=== PATIENT | male | born 1960 | race Caucasian/White ===

== ENCOUNTER 2018-09-28 07:51 | Day surgery (SDC) | payer BC ==
[~2018-09-28 07:51] MED LIST: Lactated Ringers 1,000 ML IV SCH; Sodium Chloride 0.9% 10 ML Syringe FLUSH PRN
[2018-09-28] MEDS ORDERED: Propofol 200 MG/20 ML SDV ONE ×2 (10:26→11:11)
[2018-09-28] MEDS ORDERED: fentaNYL 100 MCG/2 ML SDV ONE (10:26)
--- NOTE | 2018-09-28 16:38 | OR ---
PREOPERATIVE DIAGNOSIS: Screening colonoscopy. POSTOPERATIVE DIAGNOSIS: Normal colonoscopic exam. PROCEDURE PROPOSED: Total flexible colonoscopy. PROCEDURE DONE: Total flexible colonoscopy. INDICATION: This is a 57-year-old gentleman who comes in for screening colonoscopy. His last examination was about 10 years ago. He denies any symptomatology. He has a negative family history for any colon cancer. TECHNIQUE: The patient was brought to the endoscopy suite, placed in left lateral decubitus position. He was sedated per [employer] with propofol. The flexible video colonoscope was then passed transanally and under visualization advanced to the cecum. Examination revealed a normal ascending, transverse, descending, sigmoid, and rectal colon. There was no evidence of any diverticulosis, polyps, colitis, or any other abnormalities, and the scope was then withdrawn. The patient tolerated procedure well. FINAL IMPRESSION: Essentially normal colonoscopic exam. PLAN: The patient was reassured and I felt he could wait 10 years before he needs a repeat colonoscopy. SCM: 09/28/2018 11:29:03 MODL: 09/28/2018 16:31:16 /[id number]
== END 2018-09-28 12:18 | disposition home or self-care (01) ==
LOC: VM.SDS 07:51
PROVIDERS: ATTEND Surgery
DX: Z12.11 Encounter for screening for malignant neoplasm of colon (principal); I25.10 Atherosclerotic heart disease of native coronary artery without angina pectoris; I10 Essential (primary) hypertension; J32.0 Chronic maxillary sinusitis; N52.9 Male erectile dysfunction, unspecified; E78.5 Hyperlipidemia, unspecified; I09.9 Rheumatic heart disease, unspecified; G47.33 Obstructive sleep apnea (adult) (pediatric); E78.00 Pure hypercholesterolemia, unspecified; R05 Cough; F17.220 Nicotine dependence, chewing tobacco, uncomplicated; E66.9 Obesity, unspecified; Z68.36 Body mass index [BMI] 36.0-36.9, adult; Z79.82 Long term (current) use of aspirin; Z79.899 Other long term (current) drug therapy
CPT/HCPCS: 45378; J2704; J3010; J7120

== ENCOUNTER 2019-04-11 11:02 | Emergency (ER) | payer BC ==
[2019-04-11] MEDS ORDERED: Sodium Chloride 0.9% 10 ML Syringe FLUSH PRN (11:26)
[2019-04-11] MEDS ORDERED: Morphine 4 MG/ML Syringe IVPUSH ONE (11:28)
[2019-04-11] MEDS ORDERED: Sodium Chloride 0.9% 1,000 ML IV ONE (11:28)
[2019-04-11] MEDS ORDERED: Ondansetron 4 MG/2 ML SDV IVPUSH ONE (11:28)
--- NOTE | 2019-04-11 12:13 | EDM.PDOC ---
ED HPI GENERAL MEDICAL PROBLEM - General Chief Complaint: Abdominal Pain Stated Complaint: ABDOMINAL PAIN Time Seen by Provider: 04/11/19 11:02 Source of Information: Reports: Patient History Limitations: Reports: No Limitations - History of Present Illness INITIAL COMMENTS - FREE TEXT/NARRATIVE: Pt. presents to ER with complaints of diffuse abdominal pain. Pt. states that the discomfort is worse in the RUQ. He has been afebrile. He complains of nausea. No vomiting. Denies any melena, hematochezia, or hematemesis. Denies any substernal chest pain. Pt. denies any chest pain or shortness of breath. Pt. denies any recent medication changes. Denies any lightheadedness. Pt. states that the pain has been present for a week. He states that the discomfort got worse on Friday after eating pizza. He has also noticed that his urine has been very dark for the past several days as well. Denies any dysuria, urgency, or frequency. He states that he has issues with starting and stopping his urine stream, but states that this is normal for him. Pt. states that he has not had a bowel movement for 2 days, but states that he has not been eating. Denies any diarrhea. He states that he has had issues with constipation in the past and has been taking miralax. Onset Date: 04/09/19 Location: Reports: Abdomen (localizes in RUQ). Denies: Chest Quality: Reports: Sharp. Denies: Ache Associated Symptoms: Reports: Nausea/Vomiting Upper Abdomen Pain Score (Numeric/FACES): 7 - Related Data Allergies Allergy/AdvReac Type Severity Reaction Status Date / Time No Known Allergies Allergy Verified 04/11/19 11:41 Home Meds: Home Meds Aspirin 1 tab PO DAILY 09/21/18 [History] Fluticasone Propionate [Flonase] 1 spray NASBOTH BID 09/21/18 [History] Metoprolol Succinate [Toprol XL] 1 tab PO DAILY 09/21/18 [History] Nitroglycerin 1 tab PO ASDIRECTED PRN 09/21/18 [History] atorvaSTATin Calcium [Lipitor] 1 tab PO DAILY 09/21/18 [History] hydroCHLOROthiazide [Hydrochlorothiazide] 1.5 tab PO DAILY 09/21/18 [History] Lisinopril [Zestril] 40 mg PO DAILY 04/11/19 [History] Sildenafil [Viagra] 50 mg PO BEDTIME PRN 04/11/19 [History] Past Medical History HEENT History: Reports: Impaired Vision Other HEENT History: glasses Cardiovascular History: Reports: CAD, High Cholesterol, Hypertension Respiratory History: Reports: Sleep Apnea Endocrine/Metabolic History: Reports: Obesity/BMI 30+ - Past Surgical History HEENT Surgical History: Reports: Tonsillectomy GI Surgical History: Reports: Colonoscopy Social & Family History - Caffeine Use Caffeine Use: Reports: Coffee ED ROS GENERAL - Review of Systems Review Of Systems: See Below Constitutional: Reports: No Symptoms HEENT: Reports: No Symptoms Respiratory: Reports: No Symptoms Cardiovascular: Reports: No Symptoms Endocrine: Reports: No Symptoms GI/Abdominal: Reports: Abdominal Pain, Constipation, Nausea. Denies: Anorexia, Black Stool, Bloody Stool, Diarrhea, Decreased Appetite, Hematemesis, Hematochezia, Melena, Mucous in Stool, Vomiting : Reports: Other (urine discoloration). Denies: Dysuria, Flank Pain, Frequency, Pain, Urgency Musculoskeletal: Reports: No Symptoms Skin: Reports: No Symptoms Neurological: Reports: No Symptoms Psychiatric: Reports: No Symptoms Hematologic/Lymphatic: Reports: No Symptoms Immunologic: Reports: No Symptoms ED EXAM, GENERAL - Physical Exam Exam: See Below Exam Limited By: No Limitations General Appearance: Alert, WD/WN, Moderate Distress Throat/Mouth: Normal Inspection, Normal Lips, Normal Teeth, Normal Gums, Normal Oropharynx, Normal Voice, No Airway Compromise Head: Atraumatic, Normocephalic Neck: Normal Inspection, Supple, Non-Tender, Full Range of Motion Respiratory/Chest: No Respiratory Distress, Lungs Clear, Normal Breath Sounds, No Accessory Muscle Use, Chest Non-Tender Cardiovascular: Normal Peripheral Pulses, Regular Rate, Rhythm, No Edema, No Gallop, No Murmur, No Rub Peripheral Pulses: 4+: Radial (L) GI/Abdominal: Soft, No Distention, Tender (RUQ abd. pain primarily, but has diffuse discomfort) (Male) Exam: Deferred Rectal (Males) Exam: Deferred Back Exam: Normal Inspection, Full Range of Motion Extremities: Normal Inspection, Normal Range of Motion, Non-Tender, No Pedal Edema, Normal Capillary Refill Neurological: Alert, Oriented, CN II-XII Intact, Normal Cognition, Normal Gait, Normal Reflexes, No Motor/Sensory Deficits Psychiatric: Normal Affect, Normal Mood Skin Exam: Warm, Dry, Intact, Normal Color, No Rash Lymphatic: No Adenopathy Course - Vital Signs Last Recorded V/S: Last Vital Signs Temp 37.0 C 04/11/19 11:02 Pulse 96 04/11/19 11:02 Resp 18 04/11/19 11:02 BP 144/89 H 04/11/19 11:02 Pulse Ox 92 L 04/11/19 11:02 - Orders/Labs/Meds Orders: Active Orders 24 hr Category Date Time Status Sodium Chloride 0.9% [Normal Saline] 1,000 ml Med 04/11/19 13:45 Active IV ASDIRECTED Sodium Chloride 0.9% [Saline Flush] Med 04/11/19 11:26 Active 10 ml FLUSH ASDIRECTED PRN Peripheral IV Insertion Adult [OM.PC] Routine Oth 04/11/19 11:27 Ordered Medication Orders Sodium Chloride (Normal Saline) 1,000 mls @ 250 mls/hr IV ASDIRECTED ARIN Last Admin: 04/11/19 13:40 Dose: 250 mls/hr Sodium Chloride (Saline Flush) 10 ml FLUSH ASDIRECTED PRN PRN Reason: Keep Vein Open Labs: Laboratory Tests 04/11/19 04/11/19 04/11/19 Range/Units 11:22 11:22 11:22 WBC 27.6 H* (4.0-10.0) x10^3/uL RBC 6.38 H (4.5-6.0) x10^6/uL Hgb 18.0 (14.0-18.0) g/dL Hct 49.3 (40.0-52.0) % MCV 77.3 L (78.0-93.0) fL MCH 28.2 (26.0-32.0) pg MCHC 36.5 H (32.0-36.0) g/dL RDW Coeff of Tamiko 14.9 (10.0-15.0) % Plt Count 206 (130-400) x10^3/uL Neut % (Auto) 89.9 H (50.0-80.0) % Lymph % (Auto) 3.7 L (25.0-50.0) % [place] % (Auto) 6.2 (2.0-11.0) % Eos % (Auto) 0.0 (0.0-4.0) % Baso % (Auto) 0.2 (0.2-1.2) % PT 13.1 H (10.0-12.8) SEC INR 1.2 L (2.0-3.5) Sodium 130 L (136-145) mmol/L Potassium 3.2 L (3.5-5.1) mmol/L Chloride 91 L (98-107) mmol/L Carbon Dioxide 26 (21-32) mmol/L Anion Gap 16.2 (10-20) mmol/L BUN 29 H (7-18) mg/dL Creatinine 1.3 (0.70-1.30) mg/dL Est Cr Clr Drug Dosing 70.26 mL/min Estimated GFR (MDRD) 56 Glucose 124 H (74-106) mg/dL Lactic Acid (0.4-2.0) mmol/L Calcium 8.6 (8.5-10.1) mg/dL Corrected Calcium 9.00 (8.5-10.1) mg/dL Phosphorus 1.9 L (2.6-4.7) mg/dL Magnesium 1.9 (1.8-2.4) mg/dL Total Bilirubin 9.8 H (0.2-1.0) mg/dL AST 269 H (15-37) U/L ALT 613 H (16-63) U/L Alkaline Phosphatase 265 H (46-116) U/L Creatine Kinase (39-308) U/L C-Reactive Protein 18.9 H (<=0.9) mg/dL Total Protein 7.4 (6.4-8.2) g/dL Albumin 3.5 (3.4-5.0) g/dL Globulin 3.9 Albumin/Globulin Ratio 0.90 Amylase 503 H (25-115) U/L Lipase 8855 H (73-393) U/L TSH, Ultra Sensitive 0.910 (0.358-3.74) uIU/mL Urine Color (YELLOW) Urine Appearance (CLEAR) Urine pH (5.0-8.0) Ur Specific [place] Urine Protein (NEGATIVE) mg/dL Urine Glucose (UA) (NEGATIVE) mg/dL Urine Ketones (NEGATIVE) mg/dL Urine Occult Blood (NEGATIVE) Urine Nitrite (NEGATIVE) Urine Bilirubin (NEGATIVE) Urine Urobilinogen (0.2) EU/dL Ur Leukocyte Esterase (NEGATIVE) Urine RBC (NOT SEEN) /HPF Urine WBC (NOT SEEN) /HPF Ur Squamous Epith Cells (NEGATIVE) /HPF Ur Transition Epith Cell (NEGATIVE) /HPF Amorphous Sediment Urine Bacteria (NEGATIVE) /HPF Hyaline Casts (NEGATIVE) /HPF WBC Casts (NEGATIVE) /HPF Urine Mucus (NEGATIVE) /LPF 04/11/19 04/11/19 04/11/19 Range/Units 11:22 11:22 11:59 WBC (4.0-10.0) x10^3/uL RBC (4.5-6.0) x10^6/uL Hgb (14.0-18.0) g/dL Hct (40.0-52.0) % MCV (78.0-93.0) fL MCH (26.0-32.0) pg MCHC (32.0-36.0) g/dL RDW Coeff of [place]iko (10.0-15.0) % Plt Count (130-400) x10^3/uL Neut % (Auto) (50.0-80.0) % Lymph % (Auto) (25.0-50.0) % [place] % (Auto) (2.0-11.0) % Eos % (Auto) (0.0-4.0) % Baso % (Auto) (0.2-1.2) % PT (10.0-12.8) SEC INR (2.0-3.5) Sodium (136-145) mmol/L Potassium (3.5-5.1) mmol/L Chloride (98-107) mmol/L Carbon Dioxide (21-32) mmol/L Anion Gap (10-20) mmol/L BUN (7-18) mg/dL Creatinine (0.70-1.30) mg/dL Est Cr Clr Drug Dosing mL/min Estimated GFR (MDRD) Glucose (74-106) mg/dL Lactic Acid 3.2 H* (0.4-2.0) mmol/L Calcium (8.5-10.1) mg/dL Corrected Calcium (8.5-10.1) mg/dL Phosphorus (2.6-4.7) mg/dL Magnesium (1.8-2.4) mg/dL Total Bilirubin (0.2-1.0) mg/dL AST (15-37) U/L ALT (16-63) U/L Alkaline Phosphatase (46-116) U/L Creatine Kinase 71 (39-308) U/L C-Reactive Protein (<=0.9) mg/dL Total Protein (6.4-8.2) g/dL Albumin (3.4-5.0) g/dL Globulin Albumin/Globulin Ratio Amylase (25-115) U/L Lipase (73-393) U/L TSH, Ultra Sensitive (0.358-3.74) uIU/mL Urine Color [place] H (YELLOW) Urine Appearance Cloudy H (CLEAR) Urine pH 6.0 (5.0-8.0) Ur Specific [place] >=1.030 Urine Protein 100 H (NEGATIVE) mg/dL Urine Glucose (UA) Negative (NEGATIVE) mg/dL Urine Ketones Negative (NEGATIVE) mg/dL Urine Occult Blood Trace-intact H (NEGATIVE) Urine Nitrite Negative (NEGATIVE) Urine Bilirubin Large H (NEGATIVE) Urine Urobilinogen 2.0 H (0.2) EU/dL Ur Leukocyte Esterase Negative (NEGATIVE) Urine RBC 0-5 (NOT SEEN) /HPF Urine WBC 5-10 H (NOT SEEN) /HPF Ur Squamous Epith Cells Occasional H (NEGATIVE) /HPF Ur Transition Epith Cell Occasional H (NEGATIVE) /HPF Amorphous Sediment Few Urine Bacteria Few H (NEGATIVE) /HPF Hyaline Casts Few H (NEGATIVE) /HPF WBC Casts Few H (NEGATIVE) /HPF Urine Mucus Many H (NEGATIVE) /LPF Meds: Medications Generic Name Dose Route Start Last Admin Trade Name Freq PRN Reason Stop Dose Admin Sodium Chloride 1,000 mls @ 250 mls/hr 04/11/19 13:45 04/11/19 13:40 Normal Saline IV 250 mls/hr ASDIRECTED ARIN Administration Sodium Chloride 10 ml 04/11/19 11:26 Saline Flush FLUSH ASDIRECTED PRN Keep Vein Open Discontinued Medications Generic Name Dose Route Start Last Admin Trade Name Freq PRN Reason Stop Dose Admin Sodium Chloride 1,000 mls @ 1,000 mls/hr 04/11/19 11:28 04/11/19 11:25 Normal Saline IV 04/11/19 12:27 1,000 mls/hr .BOLUS ONE Administration Piperacillin Sod/Tazobactam 100 mls @ 200 mls/hr 04/11/19 12:52 04/11/19 13: 01 Sod 3.375 gm/ Sodium Chloride IV 04/11/19 13:21 200 mls/hr STAT ONE Administration Iopamidol 100 ml 04/11/19 12:25 04/11/19 12:26 Isovue-300 (61%) IVPUSH 04/11/19 12:26 100 ml ONETIME ONE Administration Morphine Sulfate 4 mg 04/11/19 11:28 04/11/19 11:47 Morphine IVPUSH 04/11/19 11:29 4 mg ONETIME ONE Administration Ondansetron HCl 4 mg 04/11/19 11:28 04/11/19 11:45 Zofran IVPUSH 04/11/19 11:29 4 mg ONETIME ONE Administration - Radiology Interpretation Free Text/Narrative:: Acute pancreatitis with dilation of the common bile duct suspicious for choledocholithiasis or other obstructing process. Possible 2x5 mm stone in R distal ureter without hydronephrosis. - Re-Assessments/Exams Free Text/Narrative Re-Assessment/Exam: 04/11/19 14:11 Pt. was given a liter of NS on arrival. Pain and nausea were treated with IV morphine and zofran. Pt. was started on Zosyn 3.375gm IV. After his first liter of NS, he was started on a second liter at 250ml/hr. He remained hemodynamically stable during his stay in ER. Departure - Departure Time of Disposition: 14:19 Disposition: DC/Tfer to Acute Hospital 02 Clinical Impression: Pancreatitis, Choledocholithiasis with acute cholecystitis, Nephrolithiasis - Discharge Information Referrals: Brie Junior DO [Primary Care Provider] - Forms: ED Department Discharge Sepsis Event Note - Evaluation Sepsis Screening Result: No Definite Risk - Focused Exam Vital Signs: Vital Signs Temp Pulse Resp BP Pulse Ox 04/11/19 11:02 37.0 C 96 18 144/89 H 92 L Date Exam was Performed: 04/11/19 Time Exam was Performed: 14:18 - My Orders Last 24 Hours: My Active Orders 04/11/19 11:26 Sodium Chloride 0.9% [Saline Flush] 10 ml FLUSH ASDIRECTED PRN 04/11/19 11:27 Peripheral IV Insertion Adult [OM.PC] Routine 04/11/19 13:45 Sodium Chloride 0.9% [Normal Saline] 1,000 ml IV ASDIRECTED - Assessment/Plan Last 24 Hours: My Active Orders 04/11/19 11:26 Sodium Chloride 0.9% [Saline Flush] 10 ml FLUSH ASDIRECTED PRN 04/11/19 11:27 Peripheral IV Insertion Adult [OM.PC] Routine 04/11/19 13:45 Sodium Chloride 0.9% [Normal Saline] 1,000 ml IV ASDIRECTED Plan: Pt. will be transferred to [facility]. Pt. accepted by Dr. Medina. He will be transported via [facility] ground ambulance. Continue IV NS at 250ml/hr. All questions were answered.
[2019-04-11 12:14] LABS: ANION GAP 16.2 mmol/L (10-20)
[2019-04-11] MEDS ORDERED: Iopamidol 612 MG/ML 100 ML Bottle IVPUSH ONE (12:25)
[2019-04-11] MEDS ORDERED: Piperacillin/Tazobactam 3.375 GM in Sodium Chloride 0.9% 100 ML IV ONE (12:52)
--- NOTE | 2019-04-11 13:22 | CT ---
[id number] CT/CT Abdomen Pelvis W IV EXAM: ABDOMEN AND PELVIS CT WITH CONTRAST INDICATION: ABDOMINAL PAIN, ELEVATED WBCs. COMPARISON: None. DISCUSSION: Infiltrating edema in the pancreas and surrounding soft tissues with a small amount of fluid and inflammatory changes extending into the left paracolic gutter and retroperitoneum around the duodenum compatible with acute interstitial pancreatitis. There is mild dilation of the common duct to about 8 mm suspicious for choledocholithiasis or other obstructing process at the ampulla. A stone is not definitely seen at the site of transition. Mild distention or wall thickening of the gallbladder is likely secondary, but early cholecystitis cannot be excluded. There is mild fatty infiltration of the liver. There are couple of subcentimeter hypodensities in the liver that are too small to further characterize. Tiny nonobstructing calculus lower pole right kidney. There appears to be a 5 x 2.5 mm calculus in the distal right ureter without associated hydronephrosis. Partial atelectasis of both lower lobes. Small fat-containing left inguinal hernia. Scattered colonic diverticula without evidence of diverticulitis. IMPRESSION: 1. Acute pancreatitis without CT evident complication. 2. Mild dilation of the common duct is suspicious for choledocholithiasis or other obstructing process. 3. Right nephrolithiasis and probable nonobstructing distal right ureteral calculus. Moises Vásquez MD 04/11/19 0226 Thank you for allowing us to participate in the care of your patient.
[2019-04-11] MEDS ORDERED: Sodium Chloride 0.9% 1,000 ML IV SCH (13:45)
[2019-04-11] MEDS ORDERED: HYDROmorphone 1 MG/ML Syringe IVPUSH ONE (14:29)
== END 2019-04-11 15:00 | disposition short-term general hospital (02) ==
LOC: VM.ED 11:02
DX: K85.90 Acute pancreatitis without necrosis or infection, unspecified (principal); K80.40 Calculus of bile duct with cholecystitis, unspecified, without obstruction; N20.2 Calculus of kidney with calculus of ureter; I25.10 Atherosclerotic heart disease of native coronary artery without angina pectoris; I11.0 Hypertensive heart disease with heart failure; I50.9 Heart failure, unspecified; Z79.82 Long term (current) use of aspirin; Z79.899 Other long term (current) drug therapy
CPT/HCPCS: 36415; 74177; 80053; 81001; 82150; 82550; 83605; 83690; 83735; 84100; 84443; 85025; 85610; 86140; 96361; 96365; 96375; 99285-25; J1170; J2270; J2405; J2543; J7030; J7050; Q9967

== ENCOUNTER 2022-12-26 06:54 | Inpatient (IN) | payer BC ==
[2022-12-26] MEDS ORDERED: Diltiazem 50 MG/10 ML SDV IVPUSH ONE (07:06)
[2022-12-26 07:15] LABS: BASOPHILS PERCENT AUTO 0.3 % (0.2-1.2); EOSINOPHILS ABSOLUTE AUTO 0.2 x10^3/uL (0.0-0.5); EOSINOPHILS PERCENT AUTO 2.3 % (0.0-4.0); HEMOGLOBIN 16.7 g/dL (14.0-18.0); IMMATURE GRAN ABSOLUTE AUTO 0.01 x10^3/uL (0.00-0.07); LYMPHOCYTES ABSOLUTE AUTO 1.9 x10^3/uL (1.0-4.8); LYMPHOCYTES PERCENT AUTO 27.4 % (25.0-50.0); MEAN CORPUSCULAR HEMOGLOBIN 28.4 pg (26.0-32.0); MEAN CORPUSCULAR HGB CONC 34.8 g/dL (32.0-36.0); MEAN CORPUSCULAR VOLUME 81.6 fL (78.0-93.0); MONOCYTES ABSOLUTE AUTO 0.5 x10^3/uL (0.0-0.8); MONOCYTES PERCENT AUTO 6.6 % (2.0-11.0); NEUTROPHILS ABSOLUTE AUTO 4.4 x10^3/uL (1.8-7.7); NEUTROPHILS PERCENT AUTO 63.3 % (50.0-80.0); PLATELET COUNT,PLT 195 x10^3/uL (130-400); RED BLOOD CELL COUNT 5.88 x10^6/uL (4.5-6.0)
[2022-12-26 07:35] LABS: PROTHROMBIN TIME 10.4 SEC (9.5-12.2); PTT,PARTIAL THROMBOPLSTIN TIME 26.5 SEC (23.6-33.6)
[2022-12-26 07:37] LABS: A/G RATIO 1.11; ALBUMIN 3.9 g/dL (3.4-5.0); ANION GAP 13.7 mmol/L (5-15); BILIRUBIN TOTAL 0.5 mg/dL (0.2-1.0); C-REACTIVE PROTEIN 0.25 mg/dL (<=0.30); CALCIUM 9.1 mg/dL (8.5-10.1); CREATININE 0.9 mg/dL (0.70-1.30); EST CRCL DRUG DOSING (CG) 96.41 mL/min; POTASSIUM,K 3.7 mmol/L (3.5-5.1); PROTEIN TOTAL,TP 7.4 g/dL (6.4-8.2)
[2022-12-26] MEDS ORDERED: Diltiazem 125 MG in Sodium Chloride 0.9% 100 ML IV SCH (08:00)
[2022-12-26] MEDS ORDERED: Metoprolol Succinate 50 MG Tab.ER PO SCH (09:45)
[2022-12-26] MEDS: atorvaSTATin 40 MG Tab PO SCH ×2 (10:07→10:10)
[2022-12-26] MEDS ORDERED: atorvaSTATin 40 MG Tab PO SCH (21:00)
[2022-12-27] MEDS ORDERED: Aspirin 81 MG Tab.EC PO SCH (09:45)
== END 2022-12-26 15:05 | disposition home or self-care (01) | DRG 201 ==
LOC: VM.ED 06:54 → VM.MS 08:07
PROVIDERS: ADMIT Nurse Practitioner Family; ATTEND Internal Medicine
DX: I48.91 Unspecified atrial fibrillation (principal); I10 Essential (primary) hypertension; G47.33 Obstructive sleep apnea (adult) (pediatric); I25.10 Atherosclerotic heart disease of native coronary artery without angina pectoris; F17.210 Nicotine dependence, cigarettes, uncomplicated; E78.00 Pure hypercholesterolemia, unspecified; E66.9 Obesity, unspecified; Z68.38 Body mass index [BMI] 38.0-38.9, adult; Z79.82 Long term (current) use of aspirin; Z79.899 Other long term (current) drug therapy; Z98.890 Other specified postprocedural states; Z90.89 Acquired absence of other organs
CPT/HCPCS: 36415; 71046; 80053; 82550; 84443; 84484; 85025; 85610; 85730; 86140; 93005; 96374; 99285-25; A9270-GY; J3490